=== PATIENT | female | born 1995 | race Caucasian/White ===

== ENCOUNTER 2020-05-11 11:28 | Emergency (ER) | payer BC, SELFPAY ==
[2020-05-11 11:40] VITALS: BP 131/68; PULSE 73; RESP 16; TEMP 36.7; O2SAT 100
[2020-05-11 11:44] VITALS: BP 131/68; PULSE 73; RESP 16; TEMP 36.7; O2SAT 100
--- NOTE | 2020-05-11 11:47 | ED.DENTAL ---
HPI - Dental/Oral General Chief complaint: Dental/Oral Stated complaint: infected tooth Time Seen by Provider: 05/11/20 11:47 Source: patient and RN notes reviewed Mode of arrival: ambulatory Limitations: no limitations History of Present Illness Complaint: tooth pain Related Data Home Medications Medication Instructions Recorded Confirmed fexofenadine 180 mg DAILY 05/11/20 05/11/20 fluticasone propionate 2 spray INTRANASAL DAILY 05/11/20 05/11/20 Allergies Allergy/AdvReac Type Severity Reaction Status Date / Time No Known Allergies Allergy Verified 05/11/20 11:54 Review of Systems Review of Systems: Narrative: CONSTITUTIONAL: Denies malaise, chills, sweats, or fever. EYES: Denies visual changes ENT: Denies rhinorrhea, congestion, sinus pain, otalgia, sore throat, difficulty swallowing, drooling. Reports left lower dental pain, facial swelling CARDIOVASCULAR: Denies chest pain, palpitations, or edema. RESPIRATORY: Denies cough or dyspnea. MUSCULOSKELETAL: Denies myalgia. NEUROLOGIC: Denies headache. All systems reviewed & are unremarkable except as noted in HPI and below PMFSH Social History Social History Gender identity (if verbalized by the patient): Female Comments At time of signature, agree with nursing past medical, surgical, social and family history. There is no relevant family history pertinent to the presenting complaint Exam Narrative: Exam Narrative: GENERAL: Well-appearing, well-nourished, and in no acute distress. HEAD: Normocephalic, atraumatic. EYES: PERRLA, conjunctivae clear, and EOMI. No nystagmus. ENT: Nares clear. Mucous membranes moist. Oropharynx without edema, erythema or lesions. Tonsils not enlarged and without exudate. Edema and erythema surrounding tooth #17, no periapical abscess noted. Mild left facial swelling noted NECK: Supple. No lymphadenopathy CHEST: No respiratory distress. Speaks in full sentences. HEART: Regular rate and rhythm. SKIN: Warm, dry, no rash. NEURO: Alert and oriented x3. PSYCH: Normal mood and affect Course Course Emergency Course: Patient is aware of diagnosis, understands and agrees to treatment plan. Anticipatory guidance given. Patient agrees to follow-up as directed and is aware of reasons to seek care at the emergency department. Portions of this record may have been created with voice recognition software Vital Signs Vital signs: Vital Signs Temperature 98.0 F 01/02/21 11:40 Pulse Rate 73 05/11/20 11:40 Respiratory Rate 16 05/11/20 11:40 Blood Pressure 131/68 05/11/20 11:40 Pulse Oximetry 100 05/11/20 11:40 Temperature 98.0 F 05/11/20 11:44 Pulse Rate 73 05/11/20 11:44 Respiratory Rate 16 05/11/20 11:44 Blood Pressure 131/68 05/11/20 11:44 Pulse Oximetry 100 05/11/20 11:44 Reviewed. MDM - Dental/Oral MDM Narrative Medical decision making narrative: Patients pain and complaint coupled with physical findings are consistant with dentalgia. There are no focal signs of space occupying lesions that are compromising to the airway; no dysphagia, odynophagia, dysphonia, or dyspnea. No uvular deviation or soft palate edema. Patient is non-toxic appearing. The floor of the mouth is soft with no signs of Son's Angina; no induration below mandible, no neck pain. Patient is without trismus or drooling and able to swallow secretions. Patient is felt appropriate for discharge home with dental follow up. Critical Care Time Critical Care Time Critical Care Time: No Discharge Plan Discharge Clinical Impression: Toothache Patient Disposition: Home, Self-Care Condition: Stable Instructions: Antibiotic Form, Toothache (ED) Additional Instructions: Take antibiotic as directed Avoid temperature extremes May apply heat or ice to the face Gentle brushing and flossing Alternate Tylenol and ibuprofen as needed for pain Follow-up with the dentist as soon as possible Prescriptions: New
== END 2020-05-11 11:56 | disposition home or self-care (01) ==
PROVIDERS: Emergency Provider Nurse Practitioner
DX: K08.89 Other specified disorders of teeth and supporting structures (principal)
CPT/HCPCS: 99213; G0463

== ENCOUNTER 2020-12-07 16:56 | Emergency (ER) | payer BC, SELFPAY ==
[2020-12-07 17:04] VITALS: BP 134/99; PULSE 60; RESP 18; TEMP 36.9; O2SAT 100
--- NOTE | 2020-12-07 17:11 | ED.GENADULT ---
HPI - General Adult General Chief complaint: Skin/Abscess/Foreign Body Stated complaint: Bilateral leg pain Source: patient Mode of arrival: ambulatory Limitations: no limitations History of Present Illness HPI narrative: Pleasant 25 y/o female. PMHx: None reported. Presents to [facility] today with acute complaints of rash and irritation located to RLE. Pt reports to have [place], when she was stung in the leg by a jellyfish 1 week ago. She reports to have had increased redness and swelling to area, that has seemed to improve initially. However, she now has been having more redness and itching to site. No fevers, myalgias. No open wounds or discharge. No additional areas of integumentary involvement. She reports no relief with home topical Hydrocortisone therapies. Pt is without additional acute complaints of illness upon exam. Related Data Home Medications Medication Instructions Recorded Confirmed fexofenadine 180 mg DAILY 05/11/20 05/11/20 fluticasone propionate 2 spray INTRANASAL DAILY 05/11/20 05/11/20 Allergies Allergy/AdvReac Type Severity Reaction Status Date / Time No Known Allergies Allergy Verified 05/11/20 11:54 Review of Systems Review of Systems: CONSTITUTIONAL: Denies fever, chills, sweats. EYES: Denies visual changes, redness, discharge. ENT: Denies rhinorrhea, congestion, sore throat, otalgia. CARDIOVASCULAR: Denies chest pain, palpitations, edema. RESPIRATORY: Denies dyspnea, wheezing, cough GASTROINTESTINAL: Denies abdominal pain, nausea, vomiting, diarrhea. GENITOURINARY: Denies dysuria, hematuria, abnormal discharge SKIN: Rash & Itching to RLE. MUSCULOSKELETAL: Denies acute back pain, joint pain, or myalgia. NEUROLOGIC: Denies numbness, or focal weakness. PSYCHIATRIC: Denies anxiety or depression. All systems reviewed & are unremarkable except as noted in HPI and below PMFSH Social History Social History Gender identity (if verbalized by the patient): Female Exam Narrative: GENERAL: This is a well-nourished, well-developed adult, in no apparent distress. HEAD: normocephalic, atraumatic. EYES: PERRL. Sclera clear/white. EARS: External ears normal, auditory canals clear and without drainage, TMs normal. NOSE: External nose normal. Positive Rhinorrhea, no obstruction, nares patent. THROAT: Mucous membranes moist, posterior pharynx clear. No exudates. NECK: Neck supple, non-tender without lymphadenopathy, masses or thyromegaly. CARDIOVASCULAR: Regular rate and rhythm without murmurs, gallops, or rubs. Pedal pulse well RLE. RESPIRATORY: Clear to auscultation. Breath sounds equal bilaterally. No wheezes, rales, or rhonchi. GASTROINTESTINAL: Abdomen soft, non-tender, nondistended. Bowel sounds are active. No guarding. SKIN: warm, intact, good texture and turgor. With a large area of erythema located to posterior RT knee. There mild warmth and inflammation to site. No open wounds or fluctuance. There are superficial and scabbed scratches. Remainder of integumentary exam is negative. NEURO: Alert, active, and age appropriate. No focal neurologic deficits. No sensory deficits, specifically RLE. EXTREMITIES: Negative. Course Course Emergency Course: -25 y/o female. PMHx: Negative. -Localized irrigation and redness to RLE DT reported Jelly Fish sting. -Subtherapeutic relief with home remedies. -Proceed accordingly. Vital Signs Vital signs: Vital Signs Temperature 36.9 C 12/07/20 17:04 Pulse Rate 60 12/07/20 17:04 Respiratory Rate 18 12/07/20 17:04 Blood Pressure 134/99 H 12/07/20 17:04 Pulse Oximetry 100 12/07/20 17:04 Temperature 36.9 C 12/07/20 17:04 Pulse Rate 60 12/07/20 17:04 Respiratory Rate 18 12/07/20 17:04 Blood Pressure 134/99 H 12/07/20 17:04 Pulse Oximetry 100 12/07/20 17:04 Medical Decision Making MDM Narrative Medic
== END 2020-12-07 17:15 | disposition home or self-care (01) ==
PROVIDERS: Emergency Provider Nurse Practitioner Adult Health
DX: R21 Rash and other nonspecific skin eruption (principal)
CPT/HCPCS: 99213; G0463

== ENCOUNTER → 2022-04-27 12:52 | Outpatient (CLI) | payer OTHER, SELFPAY ==
--- NOTE | ~2022-04-27 | US_ITS ---
Pelvic ultrasound. Clinical History: Abnormal uterine bleeding Technique: Realtime transabdominal scanning of the pelvis was performed. Color flow Doppler and Doppl er spectral analysis were performed. Findings: The uterus is anteverted. The endometrial stripe has a thickness of 5 mm. No focal mass is identified. The right ovary measures 2.6 x 3.1 x 2.0 cm. No significant right ovarian or adnexal mass is seen. The left ovary measures 2.7 x 1.9 x 2.3 cm. No significant left ovarian or adnexal mass is seen. Probable vascular flow seen on both ovaries on Doppler spectral analysis. There is no evidence of free fluid in the cul de sac. Impression: No significant abnormality seen. Reviewed, dictated and finalized at [facility]. ER Impression: No significant abnormality seen.
== END ==
PROVIDERS: PCP Nurse Practitioner; Visit Provider Nurse Practitioner
DX: N93.8 Other specified abnormal uterine and vaginal bleeding (principal)
CPT/HCPCS: 76856